=== PATIENT | male | born 1985 | race Caucasian/White ===

== ENCOUNTER 2017-02-26 23:40 | Emergency (ER) | payer OTHER ==
--- NOTE | 2017-02-27 00:14 | PDOC ---
History of Present Illness - General History Source: Patient Exam Limitations: No Limitations - History of Present Illness Initial Comments: 02/27/17 00:53 The patient is a 31-year-old male, with no significant past medical history, who presents to the ED with 1 day of soft stool. Pt reports experiencing approximately 7 episodes. Eating and drinking does upset his stomach. He states that after eating or drinking he does not always pass a bowel movement but he does experience abdominal discomfort. He denies any fever, chills, nausea, or vomiting. He denies any recent sick contacts or recent travel. Social Hx: He denies any tobacco use, alcohol use, or drug use. Surgical Hx: None Allergies: None <Perla Cole - Last Filed: 02/27/17 00:53> - General History Source: Patient <Ck Hargrove - Last Filed: 02/27/17 01:32> - General Stated Complaint: Diarrhea/ABD PAIN Time Seen by Provider: 02/27/17 00:11 Past History <Perla Cole - Last Filed: 02/27/17 00:53> - Psycho/Social/Smoking Cessation Hx Suicidal Ideation: No Smoking Status: No Smoking History: Never smoked Number of Cigarettes Smoked Daily: 0 <Ck Hargrove - Last Filed: 02/27/17 01:32> - Past Medical History Allergies/Adverse Reactions: Allergies Allergy/AdvReac Type Severity Reaction Status Date / Time No Known Allergies Allergy Verified 02/27/17 00:15 Home Medications: Ambulatory Orders NK [No Known Home Medication] 02/27/17 Review of Systems - Review of Systems Able to Perform ROS?: Yes Comments:: 02/27/17 00:54 CONSTITUTIONAL: Absent: fever, no chills, no fatigue EYES: Absent: visual changes ENT: Absent: ear pain, no sore throat CARDIOVASCULAR: Absent: chest pain, no palpitations RESPIRATORY: Absent: cough, no SOB GI: Present: abdominal pain, diarrhea Absent: no nausea, no vomiting, no constipation GENITOURINARY: Absent: dysuria, no frequency, no hematuria MUSKULOSKELETAL: Absent: back pain, no arthralgia, no myalgia SKIN: Absent: rash NEURO: Absent: headache <Perla Cole - Last Filed: 02/27/17 00:53> *Physical Exam - Vital Signs Last Vital Signs Temp Pulse Resp BP Pulse Ox 99.1 F 121 H 14 172/98 100 02/27/17 00:15 02/27/17 00:15 02/27/17 00:15 02/27/17 00:15 02/27/17 00:15 - Physical Exam Comments: 02/27/17 00:54 GENERAL: Well-appearing, well-nourished. No apparent distress. HEENT: Normocephalic, atraumatic. PERRL, EOM intact. CARDIOVASCULAR: Normal S1, S2. Regular rate and rhythm. PULMONARY: Clear to auscultation bilaterally. ABDOMEN: Soft, non-distended, non-tender. EXTREMITIES: Normal ROM in all four extremities. No gross deformities. SKIN: Warm, dry. No rash NEUROLOGICAL: No focal neurological deficits. <Perla Cole - Last Filed: 02/27/17 00:53> ED Treatment Course - LABORATORY CBC & Chemistry Diagram: 02/27/17 00:14 02/27/17 00:35 - ADDITIONAL ORDERS Additional order review: 02/27/17 00:14 RBC 5.05 MCV 87.5 MCHC 33.3 RDW 13.3 MPV 8.1 Neutrophils % 80.6 Lymphocytes % 8.6 Monocytes % 10.1 Eosinophils % 0.2 Basophils % 0.5 - Medications Given in the ED: ED Medications Discontinued Medications Generic Name Dose Route Start Last Admin Trade Name Freq PRN Reason Stop Dose Admin Famotidine/Sodium Chloride 20 50 mls @ 100 mls/hr 02/27/17 00:15 02/27/17 00:42 mg/ Miscellaneous IVPB 02/27/17 00:44 100 mls/hr ONCE ONE Administration <Perla Cole - Last Filed: 02/27/17 00:53> - LABORATORY CBC & Chemistry Diagram: 02/27/17 00:14 02/27/17 00:35 <Ck Hargrove - Last Filed: 02/27/17 01:32> Medical Decision Making - Medical Decision Making 02/27/17 01:32 Dr. Hargrove: The scribe's documentation has been prepared under my direction and personally reviewed by me in its entirery. I confirm that the note above accurately reflects all work, treatment, procedures, and medical decision making performed by me. <Ck Hargrove - Last Filed: 02/27/17 01:32> *DC/Admit/Observation/Transfer - Attestations Scribe Attestion: 02/27/17 00:55 Documentation prepared by Perla Cole, acting as special forces medical sergeant for Ck Hargrove MD. <Perla Cole - Last Filed: 02/27/17 00:53> - Discharge Dispostion Admit: No <Ck Hargrove - Last Filed: 02/27/17 01:32> Diagnosis at time of Disposition: Diarrhea Qualifiers: Diarrhea type: unspecified type Qualified Code(s): R19.7 - Diarrhea, unspecified - Discharge Dispostion Disposition: HOME Condition at time of disposition: Improved - Referrals Referrals: John Rehman MD [Primary Care Provider] - - Patient Instructions Printed Discharge Instructions: Diarrhea Additional Instructions: drink plenty of fluids. Don't stop the diarrhea. Follow up with your doctor as needed. Return if any problems. - Post Discharge Activity Work/School Note: Back to Work
[2017-02-27] MEDS ORDERED: FAMOTIDINE 20 MG/50 ML IVPB 20 MG in PREMIX 50 IVPB ONE (00:15)
[2017-02-27] MEDS ORDERED: SODIUM CHLORIDE 1,000 ML IV STA (00:15)
[2017-02-27 00:17] VITALS: BP 172/98; PULSE 121; TEMP 99.1
[2017-02-27] MEDS ORDERED: FAMOTIDINE 20 MG/50 ML IVPB 50 ML IVPB ONE (00:29)
[2017-02-27 00:43] LABS: BASOPHIL 0.5 % (0-2.0); EOSINOPHIL 0.2 % (0-4.5); MCH 29.1 pg (25.7-33.7); MCHC 33.3 g/dl (32.0-35.9); MEAN CELL VOLUME 87.5 fl (80-96); MEAN PLT VOLUME 8.1 fl (7.5-11.1); NEUTROPHILS 80.6 % (42.8-82.8); PLATELET COUNT 160 K/MM3 (134-434); RDW 13.3 % (11.9-15.9); WHITE BLOOD COUNT 10.4 K/mm3 (4.0-10.0)
[2017-02-27 01:10] LABS: ALBUMIN 3.8 g/dl (3.4-5.0); AMYLASE 45 U/L (25-115); ANION GAP 9 (8-16); BILIRUBIN,TOTAL 0.7 mg/dL (0.2-1.0); CALCIUM 8.5 mg/dL (8.5-10.1); CO2 28 mmol/L (21-32); CREATININE 1.2 mg/dL (0.7-1.3); GLUCOSE,RANDOM 140 mg/dL (74-106); SGPT/ALT 20 U/L (12-78); TOT PROT 6.9 g/dl (6.4-8.2)
[2017-02-27 01:11] LABS: ALK PHOS 57 U/L (45-117)
[2017-02-27 01:28] LABS: MAGNESIUM 1.9 mg/dL (1.8-2.4); SGOT/AST 18 U/L (15-37)
== END 2017-02-27 01:47 | disposition home or self-care (01) ==
LOC: JER 23:40
PROC: 3E033GC Introduction of Other Therapeutic Substance into Peripheral Vein, Percutaneous Approach (ICD-10-PCS; principal; 2017-02-26)
DX: R19.7 Diarrhea, unspecified (principal)
CPT/HCPCS: 36415; 80053; 82150; 83690; 83735; 85025; 99282-25